=== PATIENT | male | born 1955 | race Caucasian/White ===

== ENCOUNTER → 2021-11-18 | Outpatient (CLI) | payer BC ==
[2021-11-18] VITALS (12 sets, daily range): BP systolic 117–158; BP diastolic 72–98; PULSE 59–69; TEMP 98.3
[~2021-11-18] VITALS: Ht 188 cm; Wt 82.0 kg
[~2021-11-18] MED LIST: COUMADIN 6MG6 MG/TAB PO; LOVENOX 6060 MG/0.6 SQ; MINOCYCLIN100 MG/CAP PO; TOPROL XL 25MG25 MG PO
--- NOTE | 2021-11-18 11:43 | NUR ---
Pt to CT per ambulation. Pt placed in prone position on CT table. Monitors applied. O2 on at 2l/nc.
--- NOTE | 2021-11-18 12:00 | NUR ---
Dr Johnson in to talk with pt regarding procedure.
--- NOTE | 2021-11-18 12:24 | NUR ---
Specimens obtained and placed in formalin by Dr Johnson. Specimen labeled.
== END ==
LOC: COL.RAD 10:01
DX: E83.52 Hypercalcemia (principal)
CPT/HCPCS: J2250; J3010